=== PATIENT | female | born 1955 | race Caucasian/White ===

== ENCOUNTER 2019-06-03 08:19 | Outpatient (CLI) | payer MEDICARE ==
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
== END 2019-06-03 08:20 | disposition home or self-care (01) ==
LOC: SCSMRI 08:19
PROVIDERS: ATTEND Nurse Practitioner Adult Health
DX: G44.52 New daily persistent headache (NDPH) (principal); M54.10 Radiculopathy, site unspecified; I67.82 Cerebral ischemia
CPT/HCPCS: 70553; 82565